=== PATIENT | male | born 1960 | race Caucasian/White ===

== ENCOUNTER 2020-04-08 22:33 | Emergency (ER) | payer OTHER, MEDICAID, SELFPAY ==
[2020-04-08 22:39] VITALS: BP 83/53; PULSE 56; RESP 18; TEMP 36.1; O2SAT 95
[2020-04-08 22:49] VITALS: PULSE 95; RESP 18; O2SAT 84
[2020-04-08 22:50] VITALS: BP 102/56; PULSE 97; RESP 17; O2SAT 97
[2020-04-08 23:00] VITALS: PULSE 89; RESP 18; O2SAT 97
--- NOTE | 2020-04-08 23:12 | DI.RAD.S_ITS ---
PROCEDURE: XR CHEST 1V INDICATIONS: dizziness, low blood pressure TECHNIQUE: One view of the chest was acquired. COMPARISON: [facility], CT, CT ANGIO CHEST PE, 08/25/2017, 9:41. [facility], CR, XR CHEST 1 VIEW, 03/18/2020, 21:23. [facility], CR, XR CHEST 1 VIEW, 12/02/2019, 19:21. [facility], CR, XR CHEST 1 VIEW, 12/02/2019, 17:23. [facility], CR, XR CHEST 1 VIEW, 02/13/2019, 13:19. FINDINGS: Surgical changes and devices: Coronary artery stents can be seen. Lungs and pleura: Lungs are clear. No pleural effusions or pneumothorax. Mediastinum: Mediastinal contours appear normal. Heart size is mildly to moderately enlarged. Bones and chest wall: No suspicious bony lesions. Overlying soft tissues appear unremarkable. IMPRESSION: Clear lungs. [id number] cardiomegaly. Cardiac stents seen. Note: No significant discrepancy from the preliminary report. Dictated by: Samuel Montano M.D. on 04/09/2020 at 8:05 Approved by: Samuel Montano M.D. on 04/09/2020 at 8:06
--- NOTE | 2020-04-08 23:14 | ED.DIZZY ---
HPI - Dizziness General Chief Complaint: Dizziness Stated Complaint: DIZZY STOMACH PAIN OVER HEATED HAD HEART ATTACKS Time Seen by Provider: 04/08/20 23:03 Source: patient Mode of arrival: Ambulatory Limitations: no limitations History of Present Illness HPI Narrative: This is a 59-year-old male comes emergency department with complaint of dizziness and low blood pressure. Patient states that he took his home medications which he had not had for the past 2 weeks. These include lisinopril, Coreg, spironolactone, atorvastatin, Plavix, melatonin, aspirin, and pantoprazole. Patient by his description is out of all or most of his medications and just refilled them. He states he was out of his blood pressure medications which looks like was choroid 6.25 mg as well as lisinopril he has a 10 and 20 mg tablet likely takes 30 mg total. He states that he took them all about 2 hours before his onset of dizziness. He states no headache. No vision changes. No chest pain, no shortness of breath. No abdominal pain denies any nausea or vomiting. No diaphoresis. No other diarrhea constipation, he denies any urinary symptoms. He denies any swelling his extremities. Patient states that he has a history of gastric ulcer that a ruptured and required surgery and that caused GI bleeding. He states these were not varices when asked specifically. He also has a history of hypertension, dyslipidemia and CHF. He denies any illicit drugs. Related Data Allergies Allergy/AdvReac Type Severity Reaction Status Date / Time No Known Drug Allergies Allergy Verified 04/09/20 01:21 Review of Systems Review of Systems ROS Unobtainable: All systems reviewed & are unremarkable except as noted in HPI and below Patient History Social History Smoking Status: Current every day smoker Smoking Status: Current every day smoker Substance Use Type: does not use Exam Narrative Exam Narrative: GEN: well nourished, thin male, alert and oriented x 3, patient appears to be in mild distress. HEENT: Atraumatic, pupils are equal round reactive to light, extraocular movements are intact. HEART: Regular rate and rhythm without murmur, clicks, rubs. No carotid bruits, pulses are equal in upper and lower extremities. No JVD. LUNGS:Lungs clear to auscultation, no wheezes, rales, crackles, chest moves symmetrically, no tachypnea accessory muscle use. ABD:bowel sounds normal, soft, non-tender, no guarding, rebound, rigidity, no masses noted, no hepatosplenomegaly :No CVA tenderness MSCL: Non-tender, no muscle atrophy, muscles strength 5/5 upper and lower extremities, full range of motion, normal gait NEURO:CN 2-12 intact, sensation normal SKIN: No rash, erythema or other skin changes noted. Initial Vital Signs Initial Vital Signs: Vital Signs Temperature 97 F L 04/08/20 22:39 Pulse Rate 56 L 04/08/20 22:39 Respiratory Rate 18 04/08/20 22:39 Blood Pressure 83/53 L 04/08/20 22:39 Pulse Oximetry 95 04/08/20 22:39 Scores GCS Bear coma scale eye opening: Spontaneous Bear coma scale verbal response: Orientated Donald coma scale motor response: Obey commands Donald coma scale total score: 15 Course Orders Ordered: ED Orders 04/08/20 23:00 Complete Blood Count AUTO DIFF Stat Comprehensive Metabolic Panel Stat Lipase Stat NT-proBNP (BNP-Adult 18+) Stat Prothrombin Time INR Stat Troponin I Stat 04/08/20 23:12 XR chest 1V Stat 04/08/20 23:14 EKG-12 Lead Stat 04/09/20 00:23 Ethanol (ETOH) Stat 04/09/20 01:00 Troponin I Stat Discontinued Medications Sodium Chloride (Normal Saline 0.9%) 1,000 mls @ 500 mls/hr IV BOLUS ONE Stop: 04/09/20 01:11 Last Admin: 04/08/20 23:42 Dose: 500 mls/hr Documented by: CVANCE Vital Signs Vital signs: Vital Signs - 8 hr 04/08/20 22:39 04/08/20 22:49 04/08/20 22:50 Temperature 97 F L Pulse Rate 56 L 95 H 97 H Respiratory Rate 18 18 17 Blood Pressure 83/53 L 102/56 L Pulse Oximetry 95 84 L 97 04/08/20 23:00 04/08/20 23:16 04/08/20 23:30 Temperature Pulse Rate 89 94 H 103 H Respiratory Rate 18 17 19 Blood Pressure 102/69 Pulse Oximetry 97 97 95 04/09/20 00:00 04/09/20 00:29 04/09/20 00:30 Temperature Pulse Rate 93 H 95 H 99 H Respiratory Rate 13 16 15 Blood Pressure 96/64 100/68 Pulse Oximetry 96 98 97 02/27/21 00:40 04/09/20 00:50 04/09/20 01:00 Temperature Pulse Rate 93 H 92 H 90 Respiratory Rate 16 13 13 Blood Pressure 93/65 96/62 86/56 L Pulse Oximetry 97 97 98 04/09/20 01:10 04/09/20 01:13 04/09/20 01:14 Temperature Pulse Rate 89 90 86 Respiratory Rate 14 13 12 Blood Pressure 90/59 L 85/60 L 88/58 L Pulse Oximetry 99 100 100 04/09/20 01:20 04/09/20 01:30 04/09/20 01:40 Temperature Pulse Rate 88 89 88 Respiratory Rate 14 14 14 Blood Pressure 84/55 L 87/56 L 87/57 L Pulse Oximetry 100 100 100 04/09/20 01:44 04/09/20 01:50 04/09/20 02:00 Temperature Pulse Rate 87 85 92 H Respiratory Rate 13 13 16 Blood Pressure 90/58 L 92/58 L 99/58 L Pulse Oximetry 82 L 04/09/20 02:10 04/09/20 02:20 Temperature Pulse Rate 90 92 H Respiratory Rate 15 36 H Blood Pressure 95/64 93/66 Pulse Oximetry 93 97 MDM - Dizziness Lab Data Attestation: I reviewed the patient's lab results. Result diagrams: 04/08/20 23:00 04/08/20 23:00 Labs: Lab Results 04/08/20 04/08/20 04/08/20 Range/Units 23:00 23:00 23:00 WBC 6.7 (4.5-11.0) X10^3/uL RBC 4.79 (4.5-5.9) X10^6/uL Hgb 13.0 L (13.5-17.5) g/dL Hct 39.4 L (41-53) % MCV 82.3 (80-100) fL MCH 27.1 (26-34) PG MCHC 33.0 (30-36) % RDW 20.9 H (11.6-14.8) % Plt Count 244 (150-400) X10^3/uL Neut % (Auto) 62.2 (50-75) % Lymph % (Auto) 23.4 L (25-40) % [place] % (Auto) 10.0 (3-14) % Eos % (Auto) 3.2 (2-4) % Baso % (Auto) 1.2 (0-2) % Neut # (Auto) 4200 (4481-5932) /uL Lymph # (Auto) 1600 (7501-4545) /uL [place] # (Auto) 700 (0-900) /uL Eos # (Auto) 200 (0-450) /uL Baso # (Auto) 100 (0-100) /uL RBC Morphology See below Anisocytosis 3+ H Ovalocytes 1+ H PT 13.0 H (10.1-12.7) SECONDS INR 1.1 (0.9-1.3) Sodium 138 (137-145) mmol/L Potassium 4.0 (3.4-5.1) mmol/L Chloride 104 (98-107) mmol/L Carbon Dioxide 30 (22-32) mmol/L BUN 17 (9-20) mg/dL Creatinine 0.94 (0.66-1.25) mg/dL Estimated GFR > 60.0 (>60) mL/min BUN/Creatinine Ratio 18.1 (6-22) Glucose 75 (70-100) mg/dL Calcium 8.4 (8.4-10.2) mg/dL Total Bilirubin 0.5 (0.2-1.3) mg/dL AST 32 (17-59) IU/L ALT 22 (<50) IU/L Alkaline Phosphatase 66 (38-126) U/L Troponin I < 0.012 (0.01-0.034) ng/mL NT-Pro-B Natriuret Pep (<125) pg/mL Total Protein 6.4 (6.3-8.2) g/dL Albumin 3.5 (3.5-5.0) g/dL Globulin 2.9 (1.7-4.1) g/dL Albumin/Globulin Ratio 1.2 (1.0-2.8) Lipase (23-300) U/L Ethyl Alcohol ( - 10) mg/dL 04/08/20 04/08/20 04/08/20 Range/Units 23:00 23:00 23:00 WBC (4.5-11.0) X10^3/uL RBC (4.5-5.9) X10^6/uL Hgb (13.5-17.5) g/dL Hct (41-53) % MCV (80-100) fL MCH (26-34) PG MCHC (30-36) % RDW (11.6-14.8) % Plt Count (150-400) X10^3/uL Neut % (Auto) (50-75) % Lymph % (Auto) (25-40) % [place] % (Auto) (3-14) % Eos % (Auto) (2-4) % Baso % (Auto) (0-2) % Neut # (Auto) (7324-1841) /uL Lymph # (Auto) (1966-4550) /uL [place] # (Auto) (0-900) /uL Eos # (Auto) (0-450) /uL Baso # (Auto) (0-100) /uL RBC Morphology Anisocytosis Ovalocytes PT (10.1-12.7) SECONDS INR (0.9-1.3) Sodium (137-145) mmol/L Potassium (3.4-5.1) mmol/L Chloride (98-107) mmol/L Carbon Dioxide (22-32) mmol/L BUN (9-20) mg/dL Creatinine (0.66-1.25) mg/dL Estimated GFR (>60) mL/min BUN/Creatinine Ratio (6-22) Glucose (70-100) mg/dL Calcium (8.4-10.2) mg/dL Total Bilirubin (0.2-1.3) mg/dL AST (17-59) IU/L ALT (<50) IU/L Alkaline Phosphatase (38-126) U/L Troponin I (0.01-0.034) ng/mL NT-Pro-B Natriuret Pep 4470 H (<125) pg/mL Total Protein (6.3-8.2) g/dL Albumin (3.5-5.0) g/dL Globulin (1.7-4.1) g/dL Albumin/Globulin Ratio (1.0-2.8) Lipase 27 (23-300) U/L Ethyl Alcohol < 10 ( - 10) mg/dL 04/09/20 Range/Units 01:00 WBC (4.5-11.0) X10^3/uL RBC (4.5-5.9) X10^6/uL Hgb (13.5-17.5) g/dL Hct (41-53) % MCV (80-100) fL MCH (26-34) PG MCHC (30-36) % RDW (11.6-14.8) % Plt Count (150-400) X10^3/uL Neut % (Auto) (50-75) % Lymph % (Auto) (25-40) % [place] % (Auto) (3-14) % Eos % (Auto) (2-4) % Baso % (Auto) (0-2) % Neut # (Auto) (8726-1357) /uL Lymph # (Auto) (6804-3499) /uL [place] # (Auto) (0-900) /uL Eos # (Auto) (0-450) /uL Baso # (Auto) (0-100) /uL RBC Morphology Anisocytosis Ovalocytes PT (10.1-12.7) SECONDS INR (0.9-1.3) Sodium (137-145) mmol/L Potassium (3.4-5.1) mmol/L Chloride (98-107) mmol/L Carbon Dioxide (22-32) mmol/L BUN (9-20) mg/dL Creatinine (0.66-1.25) mg/dL Estimated GFR (>60) mL/min BUN/Creatinine Ratio (6-22) Glucose (70-100) mg/dL Calcium (8.4-10.2) mg/dL Total Bilirubin (0.2-1.3) mg/dL AST (17-59) IU/L ALT (<50) IU/L Alkaline Phosphatase (38-126) U/L Troponin I < 0.012 (0.01-0.034) ng/mL NT-Pro-B Natriuret Pep (<125) pg/mL Total Protein (6.3-8.2) g/dL Albumin (3.5-5.0) g/dL Globulin (1.7-4.1) g/dL Albumin/Globulin Ratio (1.0-2.8) Lipase (23-300) U/L Ethyl Alcohol ( - 10) mg/dL Imaging Data Chest x-ray: Radiologist's Impression: Heart is enlarged. No CHF. No focal consolidation or definite pleural effusion. ECG Data Attestation: I personally reviewed and interpreted this ECG as follows: Interpretation: Sinus rhythm with premature supraventricular complex. Biatrial enlargement. Left anterior fascicular block. Left ventricular hypertrophy with QRS widening. EKG number shows sinus arrhythmia, left atrial enlargement, left anterior fascicular block with minimal voltage criteria for LVH. Patient's EKG appears similar to prior. Patient does have some inverted T-waves in 1 and aVL. EKG does not show any new changes. MDM Narrative Medical decision making narrative: This is a 59-year-old male comes emergency department with complaint of dizziness and has a blood pressure in the 80s. He feels better when lying flat his pressure improved to the 90s but is consistently low in the department. He feels much improved after a 1 L fluids. 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 At that time patient did have a Lexiscan stress test showed a fixed defect. He had an echo that shows an EF of 30% with no new changes. Suspect patient's hypotension is in relation to suddenly restarting his medications. No other obvious infectious changes. His hemoglobin is little bit low at 13. Chest x-ray does not show clear fluid overload, he clinically does not appear fluid overloaded on exam. BNP is 4400 troponin is negative x2. Patient was encouraged to reach start all of his diuretics. He is able to stand and ambulate in the department and no longer feels dizzy even though his blood pressure still is on the lower side. Patient denies any recent illicit drug ingestion. Discharge Plan Departure Patient Disposition: Home Clinical Impression: Dizziness, Low blood pressure Instructions: DI for Dizziness-Nonvertigo Activity Restrictions/Additional Instructions: Follow up with your physician this week. I suspect some of your dizziness is related to suddenly restarting your blood pressure medications. I do recommend you take your medications but you may wish to slowly restart them or monitor your blood pressure before starting them. Do make sure that you take your diuretics as you are little bit fluid overloaded by your lab work. Return to the ER for fevers, lightheadedness or passing out, persistently low blood pressures, new chest pain, shortness of breath, persistent vomiting, black or bloody stools or any other new or concerning symptoms.
[2020-04-08 23:16] VITALS: BP 102/69; PULSE 94; RESP 17; O2SAT 97
[2020-04-08 23:24] LABS: INR 1.1 (0.9-1.3)
[2020-04-08 23:29] LABS: Lipase 27 U/L (23-300)
[2020-04-08 23:30] VITALS: PULSE 103; RESP 19; O2SAT 95
[2020-04-08 23:31] LABS: Alanine Aminotransferase 22 IU/L (<50); Albumin 3.5 g/dL (3.5-5.0); Albumin Globulin Ratio 1.2 (1.0-2.8); Alkaline Phosphatase 66 U/L (38-126); Aspartate Aminotransferase 32 IU/L (17-59); BUN Creatinine Ratio 18.1 (6-22); Bilirubin Total 0.5 mg/dL (0.2-1.3); Blood Urea Nitrogen 17 mg/dL (9-20); Calcium 8.4 mg/dL (8.4-10.2); Carbon Dioxide 30 mmol/L (22-32); Chloride 104 mmol/L (98-107); Estimated Glomerular Filt Rate > 60.0 mL/min (>60); Globulin 2.9 g/dL (1.7-4.1); Glucose 75 mg/dL (70-100); HEMOLYSIS 25 (0-50); Sodium 138 mmol/L (137-145); Total Protein 6.4 g/dL (6.3-8.2)
[2020-04-08 23:34] LABS: Add Manual Diff / Slide Review NO; Basophils Absolute Auto 100 /uL (0-100); Basophils Percent Auto 1.2 % (0-2); Eosinophils Absolute Auto 200 /uL (0-450); Eosinophils Percent Auto 3.2 % (2-4); Hematocrit 39.4 % (41-53); Lymphocytes Absolute Auto 1600 /uL (1100-4500); Lymphocytes Percent Auto 23.4 % (25-40); Mean Corpuscular Hemoglobin 27.1 PG (26-34); Mean Corpuscular Volume 82.3 fL (80-100); Monocytes Absolute Auto 700 /uL (0-900); Neutrophils Absolute Auto 4200 /uL (1500-7000); Neutrophils Percent Auto 62.2 % (50-75); Platelet Count 244 X10^3/uL (150-400); Red Blood Cell Count 4.79 X10^6/uL (4.5-5.9); Red Cell Distribution Width 20.9 % (11.6-14.8); White Blood Cell Count 6.7 X10^3/uL (4.5-11.0)
[2020-04-08 23:40] LABS: NT-proBNP (BNP-Adult 18+) 4470 pg/mL (<125)
[2020-04-08 23:42] LABS: Troponin I < 0.012 ng/mL (0.01-0.034)
[2020-04-08] MEDS: SODIUM CHLORIDE 0.9% 1,000 ML 500 ML IV (23:42)
[2020-04-09] VITALS (17 sets, daily range): BP systolic 84–100; BP diastolic 55–68; PULSE 85–99; RESP 12–36; O2SAT 82–100
[2020-04-09 00:38] LABS: Ethanol (ETOH) < 10 mg/dL
[2020-04-09 01:05] LABS: Anisocytosis 3+; Ovalocytes 1+
--- NOTE | 2020-04-09 01:16 | PC.NURSE ---
He had his 500 ml NS bolus,B/P now around 90 systolic,DR Carbajal notified and gave verbal order to bolus another 500 ml NS.
[2020-04-09 01:37] LABS: Troponin I < 0.012 ng/mL (0.01-0.034)
== END 2020-04-09 02:48 | disposition home or self-care (01) ==
PROVIDERS: Emergency Provider Emergency Medicine
DX: R42 Dizziness and giddiness (principal); I95.9 Hypotension, unspecified; E78.5 Hyperlipidemia, unspecified; I11.0 Hypertensive heart disease with heart failure; I50.9 Heart failure, unspecified; Z95.5 Presence of coronary angioplasty implant and graft; Z79.01 Long term (current) use of anticoagulants
CPT/HCPCS: 36415; 71045; 80053; 80320; 83690; 83880; 84484; 85025; 85610; 93005; 99283; 99284